=== PATIENT | female | born 1995 | race Caucasian/White ===

== ENCOUNTER 2025-08-21 11:57 | Outpatient (CLI) | payer BC, SELFPAY ==
--- NOTE | 2025-08-21 12:15 | CRLHL7_ITS ---
For Patients: As a result of the Cures Act, medical imaging exams and procedure reports are released immediately into your electronic medical record. You may view this report before your referring provider. If you have questions, please contact your health care provider. OB ULTRASOUND INDICATION: Dating and viability. TECHNIQUE: Real time grayscale imaging of the fetus was performed. Transvaginal. Transvaginal imaging performed to better demonstrate the endometrium and ovaries. LMP: Unknown. Previous US: No. CRL: 0.74 cm. 6 w 4 d. MARC: 04/12/2026. FHR: 129 BPM. Gestational sac: 1.6 cm. Appears within normal limits. Yolk sac: 2.3 mm. Appears within normal limits. Right ovary: 3.6 x 33.4 x 3.2 cm. CL x 2. Left ovary: 2.9 x 1.7 x 2.0 cm. IMPRESSION: 1. Single living intrauterine measures 6 weeks 4 days with sonographic due date 04/12/2026. 2. Incidental small cysts within the right ovary. Jorge Horton M.D. Diagnostic Radiologist [email or web address] LAURIE/[email or web address] choi/Dictated by: Jorge Horton MD @ 08/21/2025 12:29:00 PM (Electronically Signed)
== END 2025-08-21 11:58 | disposition home or self-care (01) ==
LOC: US 11:58
PROVIDERS: PCP Family Medicine; Visit Provider Registered Nurse
DX: O34.81 Maternal care for other abnormalities of pelvic organs, first trimester (principal); N83.201 Unspecified ovarian cyst, right side; Z3A.01 Less than 8 weeks gestation of pregnancy
CPT/HCPCS: 76817; 82565; 82570; 83021; 84156; 84450; 84460; 84520; 86592; 86703; 86704; 86706; 86762; 86787; 86803; 86850; 86900; 86901; 87086; 87340

== ENCOUNTER 2025-09-25 09:28 | Outpatient (CLI) | payer BC, SELFPAY ==
[2025-09-25 13:50] LABS: Chlamydia DNA Amplified* NOT DETECTED (No Detected); GC DNA Amplified* NOT DETECTED (No Detected)
== END 2025-09-25 09:29 | disposition home or self-care (01) ==
LOC: NFLDREF 09:29
PROVIDERS: PCP Family Medicine; Visit Provider Obstetrics & Gynecology
DX: Z34.91 Encounter for supervision of normal pregnancy, unspecified, first trimester (principal)
CPT/HCPCS: 87491; 87591